=== PATIENT | female | born 1960 | race Caucasian/White ===

== ENCOUNTER 2018-06-03 07:34 | Emergency (ER) | payer OTHER ==
[2018-06-03] MEDS: SOD CHLORIDE 0.9% 1,000 ML IV (08:21)
[2018-06-03] MEDS: DIPHENHYDRAMINE 50 MG INJ IV (08:22)
[2018-06-03] MEDS: KETOROLAC 30 MG INJ IV (08:22)
[2018-06-03] MEDS: METOCLOPRAMIDE 10 MG INJ IV (08:22)
[2018-06-03 09:16] LABS: ADD UMIC YES; UR ASCORBIC ACID NEGATIVE (NEGATIVE); UR BACTERIA FEW /HPF (NONE SEEN); UR BILIRUBIN (Dip) NEGATIVE (NEGATIVE); UR BLOOD (Dip) NEGATIVE (NEGATIVE); UR CALCIUM OXALATE CRYSTAL FEW /HPF (NONE SEEN); UR CLARITY SLIGHTLY CLOUDY (CLEAR); UR COLOR YELLOW (YELLOW); UR GLUCOSE (Dip) NEGATIVE (NEGATIVE); UR KETONES (Dip) NEGATIVE (NEGATIVE); UR LEUKOCYTE ESTERASE (Dip) TRACE Leu/ul (NEGATIVE); UR MUCUS MODERATE /HPF (NONE SEEN); UR NITRITE (Dip) NEGATIVE (NEGATIVE); UR RBC 1 /HPF (0-5); UR TOTAL PROTEIN (Dip) NEGATIVE (NEGATIVE); UR UROBILINOGEN (Dip) NEGATIVE (NEGATIVE); UR WBC 1 /HPF (0-5)
== END 2018-06-03 09:40 | disposition home or self-care (01) ==
LOC: FTE 07:34
DX: M54.9 Dorsalgia, unspecified (principal)
CPT/HCPCS: 81001; 96361; 96374; 96375; 99284-25